=== PATIENT | male | born 1955 | race Caucasian/White ===

== ENCOUNTER → 2017-07-28 | Outpatient (CLI) | payer OTHER | LOC: HEART CORB 07-26 09:15 | DX: R07.2 Precordial pain (principal); R94.31 Abnormal electrocardiogram [ECG] [EKG] | CPT/HCPCS: 78452; A9502; J2785 ==

== ENCOUNTER 2021-01-28 19:25 | Inpatient (IN) | payer MEDICARE, OTHER ==
[~2021-01-28] VITALS: Ht 170.2 cm; Wt 107.5 kg
[~2021-01-28 19:25] MED LIST: ALDACTONE50 MG PO; ARICEPT10 MG PO; ASPIR 8181 MG PO; BRILINTA90 MG PO; BUSPAR 10MG10 MG PO; COREG 25MG TAB25 MG PO; DESYREL 50 MG T50 MG PO; DITROPAN 5 MG TA5 MG PO; ENALAPRIL MALEAT5 MG PO; ESCITALOPRAM OX20 MG PO; FLOMAX 0.4 MG0.4 MG PO; FLUCONAZOLE100 MG PO; HYDROCODON-ACE1 EAC2 PO; IMODIUM CAP 2 MG2 MG PO; ISOSORBIDE MONO60 MG PO; JANUVIA50 MG PO; KLONOPIN TAB 00.5 MG PO; LANTUS INS100 UTS/M2 SQ; LASIX20 MG PO; LEVEMIR FL100 UNIT/1 SQ; LEXAPRO10 MG PO; LIPITOR TAB 2020 MG PO; NEURONTIN 300300 MG PO; NITROSTAT0.4 MG SL; NORCO 10-325 T1 EACH PO; NORTRIPTYLINE H10 MG PO; NORVASC 5 MG TAB5 MG PO; PLETAL 100 MG100 MG PO; VITAMIN D250000 UNIT PO; ZANTAC 150 MG150 MG PO
[2021-01-28 20:18] LABS: HEMOGLOBIN 10.4 gm/dl (14.0-17.5); RED BLOOD COUNT 3.78 M/UL (4.20-5.50); WHITE BLOOD COUNT 8.1 K/UL (4.5-11.0)
[2021-01-28 20:33] LABS: BUN/CREATININE RATIO 25 (0-10)
[2021-01-28] MEDS ORDERED: ZYLOPRIM 100 M100 MG PO (22:12)
[2021-01-28] MEDS ORDERED: CLOPIDOGREL75 MG PO (22:13)
[2021-01-28] MEDS ORDERED: FEOSOL325 MG PO (22:15)
[2021-01-28] MEDS ORDERED: PROSCAR 5 MG TAB5 MG PO (22:16)
[2021-01-28] MEDS ORDERED: HUMIRA40 MG/0.8 SQ (22:19)
[2021-01-28] MEDS ORDERED: NIFEDIPINE ER90 M1 PO (22:20)
[2021-01-28] MEDS ORDERED: DAILY VITAMIN1 EAC2 PO (22:21)
[2021-01-28] MEDS ORDERED: PROTONIX20 MG PO (22:22)
[2021-01-28] MEDS ORDERED: MIRALAX17 GM PO (22:23)
[2021-01-28] MEDS ORDERED: K-TAB ER20 MEQ PO (22:29)
[2021-01-28] MEDS ORDERED: NOVOLOG100 UNIT/1 SC (22:38)
[2021-01-28] MEDS ORDERED: MAPAP325 MG PO (22:42)
[2021-01-28] MEDS ORDERED: VENTOLIN HFA 66.7 GM INH (22:44)
--- NOTE | 2021-01-29 06:22 | NUR ---
Pt refusing to wear the bipap. morning ABG is getting worse, ph dropped to 7.28, co2 78.8, hco3 36.8. po2 93.7. Dr. Gómez notified of the situation. pt does not want to be placed on life support and wants to be DNR.
--- NOTE | 2021-01-29 12:23 | NUR ---
01/29/21 1230: PATIENT IS MORE ALERT AFTER WEARING BIPAP SINCE 7AM. PATIENT IS ALERT AND ORDIENTED x4 AT THIS TIME. DISCUSSED CODE STATUS WITH PATIENT. PATIENT STATED THAT IF HE GETS BAD ENOUGH TO NEED IT, THAT HE WOULD BE OKAY WITH BEING INTUBATED AND HE IS OKAY WITH HAVING CPR PERFORMED IF HE NEEDED IT. PATIENT STATED THAT HE DOES NOT WANT TO AND HE WANTS EVERYTHING DONE IF IT WOULD HELP IN SAVING HIS LIFE. WILL DISCUSS PATIENT'S WISHES WITH HOSPITALIST AND SWITCH PATIENT TO FULL CODE.
[2021-01-30 05:08] LABS: HEMOGLOBIN 9.9 gm/dl (14.0-17.5); RED BLOOD COUNT 3.67 M/UL (4.20-5.50)
[2021-01-30 05:26] LABS: BUN/CREATININE RATIO 28 (0-10)
[2021-01-31 05:01] LABS: HEMOGLOBIN 10.3 gm/dl (14.0-17.5); RED BLOOD COUNT 3.8 M/UL (4.20-5.50); WHITE BLOOD COUNT 8.2 K/UL (4.5-11.0)
[2021-01-31 05:20] LABS: BUN/CREATININE RATIO 30 (0-10)
[2021-01-31] MEDS ORDERED: ALDACTONE 25MG25 MG PO (11:56)
[2021-01-31] MEDS ORDERED: FUROSEMIDE40 MG PO (11:56)
[2021-01-31] MEDS ORDERED: LISINOPRIL10 MG PO (11:56)
== END 2021-01-31 23:55 | DRG 291 ==
LOC: ER1 19:25 → CCU 21:24 → CDU 21:24 → CCU 01-29 00:28 → M/S 01-30 19:56
PROVIDERS: Emergency Medicine; Internal Medicine; Internal Medicine Pulmonary Disease; ADMIT Internal Medicine
PROC: 8E0ZXY6 Isolation (ICD-10-PCS; principal; 2021-01-28)
DX: I11.0 Hypertensive heart disease with heart failure (principal); J96.21 Acute and chronic respiratory failure with hypoxia; G93.41 Metabolic encephalopathy; J96.22 Acute and chronic respiratory failure with hypercapnia; J44.1 Chronic obstructive pulmonary disease with (acute) exacerbation; J44.0 Chronic obstructive pulmonary disease with (acute) lower respiratory infection; J81.1 Chronic pulmonary edema; E44.0 Moderate protein-calorie malnutrition; E66.2 Morbid (severe) obesity with alveolar hypoventilation; E87.2 Acidosis; Z20.822 Contact with and (suspected) exposure to COVID-19; I50.23 Acute on chronic systolic (congestive) heart failure; I43 Cardiomyopathy in diseases classified elsewhere; I25.10 Atherosclerotic heart disease of native coronary artery without angina pectoris; E11.40 Type 2 diabetes mellitus with diabetic neuropathy, unspecified; F41.8 Other specified anxiety disorders; N40.0 Benign prostatic hyperplasia without lower urinary tract symptoms; D50.9 Iron deficiency anemia, unspecified; F11.90 Opioid use, unspecified, uncomplicated; G89.4 Chronic pain syndrome; I73.9 Peripheral vascular disease, unspecified; R41.82 Altered mental status, unspecified; E11.65 Type 2 diabetes mellitus with hyperglycemia; L40.9 Psoriasis, unspecified; F32.9 Major depressive disorder, single episode, unspecified; Z98.61 Coronary angioplasty status; Z95.1 Presence of aortocoronary bypass graft; Z68.30 Body mass index [BMI] 30.0-30.9, adult; Z89.512 Acquired absence of left leg below knee; Z89.511 Acquired absence of right leg below knee
CPT/HCPCS: ECHO; 0240U; 36415; 36600; 71045; 80048; 80053; 80202; 82550; 82553; 82728; 82803; 82962; 83036; 83605; 83615; 83874; 83880; 84439; 84443; 84484; 84550; 85025; 85379; 85384; 85652; 86140; 87081; 93005; 93306; 94640; 94660; 94664; 94760; 96374; 99285; C9113; G0378; J1100; J1120; J1205; J1650; J1940; J2543; J2920; J3370; J7050; J7070; U0002

== ENCOUNTER 2021-06-18 22:58 | Inpatient (IN) | payer MEDICARE, OTHER ==
[~2021-06-18] VITALS: Ht 170.2 cm; Wt 95.3 kg
[~2021-06-18 22:58] MED LIST changes: +ALDACTONE 25MG25 MG PO; +CLOPIDOGREL75 MG PO; +DAILY VITAMIN1 EAC2 PO; +FEOSOL325 MG PO; +FUROSEMIDE40 MG PO; +HUMIRA40 MG/0.8 SQ; +K-TAB ER20 MEQ PO; +LISINOPRIL10 MG PO; +MAPAP325 MG PO; +MIRALAX17 GM PO; +NIFEDIPINE ER90 M1 PO; +NOVOLOG100 UNIT/1 SC; +PROSCAR 5 MG TAB5 MG PO; +PROTONIX20 MG PO; +VENTOLIN HFA 66.7 GM INH; +ZYLOPRIM 100 M100 MG PO
[2021-06-18 23:53] LABS: HEMOGLOBIN 10.1 gm/dl (14.0-17.5); RED BLOOD COUNT 3.22 M/UL (4.20-5.50); WHITE BLOOD COUNT 7.3 K/UL (4.5-11.0)
[2021-06-19] MEDS ORDERED: LEVEMIR100 UNIT/1 SQ (05:04)
[2021-06-19] MEDS ORDERED: IMODIUM CAP 2 MG2 MG PO (05:08)
[2021-06-19] MEDS ORDERED: LASIX 40 MG TAB40 MG PO (05:16)
[2021-06-19] MEDS ORDERED: ZESTRIL10 MG PO (05:24)
[2021-06-20 05:36] LABS: HEMOGLOBIN 8.5 gm/dl (14.0-17.5)
[2021-06-20 05:37] LABS: RED BLOOD COUNT 2.72 M/UL (4.20-5.50); WHITE BLOOD COUNT 5.4 K/UL (4.5-11.0)
[2021-06-20 06:10] LABS: CREATININE, URINE 62.3 mg/dL (Not Estab.)
[2021-06-21 05:49] LABS: HEMOGLOBIN 8.2 gm/dl (14.0-17.5); RED BLOOD COUNT 2.71 M/UL (4.20-5.50); WHITE BLOOD COUNT 6.7 K/UL (4.5-11.0)
[2021-06-21 06:10] LABS: BUN/CREATININE RATIO 30 (0-10)
[2021-06-22 07:05] LABS: HEMOGLOBIN 8.7 gm/dl (14.0-17.5); RED BLOOD COUNT 2.97 M/UL (4.20-5.50); WHITE BLOOD COUNT 7.4 K/UL (4.5-11.0)
[2021-06-22 07:23] LABS: BUN/CREATININE RATIO 30 (0-10)
[2021-06-23 05:55] LABS: HEMOGLOBIN 8.5 gm/dl (14.0-17.5); RED BLOOD COUNT 2.85 M/UL (4.20-5.50); WHITE BLOOD COUNT 7.6 K/UL (4.5-11.0)
[2021-06-23 06:24] LABS: BUN/CREATININE RATIO 24 (0-10)
[2021-06-23] MEDS ORDERED: HYDRALAZINE HCL25 MG PO ×2 (09:19→09:39)
[2021-06-23] MEDS ORDERED: ALDACTONE 25MG25 MG PO (09:19)
[2021-06-23] MEDS ORDERED: DEX4 GLUCOSE4 GM PO (09:24)
[2021-06-23] MEDS ORDERED: DOXYCYCLINE HY100 M2 PO (09:52)
[2021-06-23] MEDS ORDERED: OMNICEF 300 MG300 MG PO (09:52)
[2021-06-23] MEDS ORDERED: HYDROCODON-ACE1 EAC2 PO (10:44)
--- NOTE | 2021-06-23 13:52 | NUR ---
Report called to [facility] at this time.
--- NOTE | 2021-06-23 14:41 | NUR ---
Dr. Caballero new order to pull danica prior to dc
== END 2021-06-23 14:42 | disposition home or self-care (01) | DRG 682 ==
LOC: ER1 22:58 → CDU 06-19 03:32 → M/S 06-19 03:32 → CCU 06-19 03:32 → PROG CARE 06-20 05:06 → M/S 06-20 16:30
PROVIDERS: Emergency Medicine; Internal Medicine; Internal Medicine Nephrology; ADMIT Internal Medicine
DX: N17.9 Acute kidney failure, unspecified (principal); G93.41 Metabolic encephalopathy; E87.4 Mixed disorder of acid-base balance; I50.22 Chronic systolic (congestive) heart failure; Z20.822 Contact with and (suspected) exposure to COVID-19; E27.40 Unspecified adrenocortical insufficiency; E87.1 Hypo-osmolality and hyponatremia; E66.2 Morbid (severe) obesity with alveolar hypoventilation; E87.2 Acidosis; I12.9 Hypertensive chronic kidney disease with stage 1 through stage 4 chronic kidney disease, or unspecified chronic kidney disease; E11.22 Type 2 diabetes mellitus with diabetic chronic kidney disease; E87.5 Hyperkalemia; I49.9 Cardiac arrhythmia, unspecified; I95.9 Hypotension, unspecified; I25.10 Atherosclerotic heart disease of native coronary artery without angina pectoris; G89.4 Chronic pain syndrome; K21.9 Gastro-esophageal reflux disease without esophagitis; N18.9 Chronic kidney disease, unspecified; J44.9 Chronic obstructive pulmonary disease, unspecified; I44.0 Atrioventricular block, first degree; N40.0 Benign prostatic hyperplasia without lower urinary tract symptoms; D63.8 Anemia in other chronic diseases classified elsewhere; K76.0 Fatty (change of) liver, not elsewhere classified; Z89.611 Acquired absence of right leg above knee; Z89.512 Acquired absence of left leg below knee; Z79.01 Long term (current) use of anticoagulants; Z79.82 Long term (current) use of aspirin; Z74.01 Bed confinement status; Z95.1 Presence of aortocoronary bypass graft; Z68.32 Body mass index [BMI] 32.0-32.9, adult
CPT/HCPCS: ECHO; 36415; 36600; 71045; 76705; 80048; 80053; 81001; 82043; 82550; 82570; 82728; 82800; 82803; 82962; 83540; 83550; 83605; 83735; 84100; 85025; 85027; 86140; 87040; 87086; 93005; 93306; 94640; 94664; 94760; 96365; 96375; 99285; J0610; J1644; J7070; U0002